=== PATIENT | male | born 1955 | race Caucasian/White ===

== ENCOUNTER 2022-05-30 10:39 | Outpatient (CLI) | payer MEDICARE, OTHER ==
[~2022-05-30 10:39] MED LIST: APIX5TAB3 PO; ASPI81TA52 PO; ATOR20TA66 PO; LANS15CA14 PO; OXCA150T14 PO; SERT-434 PO
== END 2022-05-30 23:59 | disposition home or self-care (01) ==
LOC: RAD 10:39
PROVIDERS: ATTEND Internal Medicine Gastroenterology
DX: K44.9 Diaphragmatic hernia without obstruction or gangrene (principal); R13.10 Dysphagia, unspecified; K22.89 Other specified disease of esophagus
CPT/HCPCS: 74240